=== PATIENT | male | born 1975 ===

== ENCOUNTER 2016-11-14 22:24 | Emergency (ER) | payer MEDICAID ==
[2016-11-14 22:36] VITALS: BMI 35.7
[2016-11-14 22:45] VITALS: BP 126/74; PULSE 101; RESP 16; TEMP 98.5; O2SAT 96
[2016-11-14] MEDS ORDERED: Sodium Chloride 0.9% 1,000 ML IV STA (23:08)
--- NOTE | 2016-11-14 23:08 | ED PDOC ---
Arrival/HPI - General Chief Complaint: Lower Extremity Problem/Injury Time Seen by Provider: 11/14/16 22:43 Historian: Patient - History of Present Illness Narrative History of Present Illness (Text): 11/14/16 23:00 This 41 yo male presents to this ED c/o scattered muscle spasm, and arthralgia x 1 day. Patient stated his muscle spasm had caused to fall, hitting his head. He felt dizzy at first. But he denies LOC, diplopia, dysarthria, sob, cp, abdominal pain, back pain, neck pain, PA, or abnormal gait. Time/Duration: Other (See HPI) Context: Home Past Medical History - Provider Review Nursing Documentation Reviewed: Yes - Cardiac Hx Cardiac Disorders: No - Pulmonary Hx Respiratory Disorders: No - Neurological Hx Neurological Disorder: No - HEENT Hx HEENT Disorder: No - Renal Hx Renal Disorder: No - Endocrine/Metabolic Hx Diabetes Mellitus Type 1: Yes - Hematological/Oncological Hx Blood Disorders: No - Integumentary Hx Dermatological Disorder: No - Gastrointestinal Hx Gastrointestinal Disorders: No - Genitourinary/Gynecological Hx Genitourinary Disorders: No - Psychiatric Hx Depression: Yes Hx Substance Use: No - Anesthesia Hx Anesthesia: No Family/Social History - Physician Review Nursing Documentation Reviewed: Yes Family/Social History: No Known Family HX Smoking Status: Never Smoked Hx Alcohol Use: Yes Frequency of alcohol use: Socially Hx Substance Use: No Allergies/Home Meds Allergies/Adverse Reactions: Allergies Penicillins Allergy (Verified 11/14/16 22:36) RASH Home Medications: Home Meds Medication Instructions Recorded Confirmed Insulin Detemir [Levemir] 40 unit SC BID 09/30/15 11/14/16 Review of Systems - Review of Systems Constitutional: Normal. absent: Fatigue, Weight Change, Fevers Eyes: Normal. absent: Vision Changes, Photophobia ENT: Normal Respiratory: Normal. absent: SOB, Cough Cardiovascular: Normal. absent: Chest Pain, Palpitations, Orthopnea Gastrointestinal: Normal. absent: Abdominal Pain, Diarrhea, Nausea Genitourinary Male: Normal. absent: Dysuria, Frequency, Hematuria Musculoskeletal: Arthralgias, Myalgias, Other (Muscle spasm). absent: Back Pain , Neck Pain, Joint Swelling Skin: Normal. absent: Rash Neurological: Normal. absent: Headache, Dizziness, Focal Weakness, Gait Changes , Speech Changes, Facial Droop, Disequilibrium Endocrine: Normal Hemo/Lymphatic: Normal Psychiatric: Normal Physical Exam Vital Signs Temp Pulse Resp BP Pulse Ox 11/14/16 22:43 98.5 F 101 H 16 126/74 96 Temperature: Afebrile Blood Pressure: Normal Pulse: Regular Respiratory Rate: Normal Appearance: Positive for: Well-Appearing, Non-Toxic, Comfortable Pain Distress: None Mental Status: Positive for: Alert and Oriented X 3 - Systems Exam Head: Present: Normocephalic, Ecchymosis (1 cm ecchymosis top of scalp. No bony tenderness, no abrasion), Other (No raccoon sign. No alfaro sign) Pupils: Present: PERRL, Other (nohyphema) Extroacular Muscles: Present: EOMI. No: Entrapment Conjunctiva: Present: Normal Ears: Present: Normal, NORMAL TM, Normal Canal, Other (No hemotympanum). No: Erythema, TM Bulging, Fluid, TM Perf Mouth: Present: Moist Mucous Membranes Pharnyx: Present: Normal. No: ERYTHEMA, EXUDATE, TONSILS ENLARGED Nose (External): Present: Atraumatic Nose (Internal): Present: Normal Inspection Neck: Present: Normal Range of Motion. No: Meningeal Signs, MIDLINE TENDERNESS , Paraspinal Tenderness Respiratory/Chest: Present: Clear to Auscultation, Good Air Exchange. No: Respiratory Distress, Accessory Muscle Use, Wheezes, Decreased Breath Sounds, Rales, Retracting, Rhonchi Cardiovascular: Present: Regular Rate and Rhythm, Normal S1, S2. No: Murmurs Abdomen: Present: Normal Bowel Sounds. No: Tenderness, Distention, Peritoneal Signs, Rebound, Guarding Back: Present: Normal Inspection. No: CVA Tenderness, Midline Tenderness, Paraspinal Tenderness, Pain with Leg Raise Upper Extremity: Present: Normal Inspection, Normal ROM, NORMAL PULSES, Neurovascularly Intact, Capillary Refill < 2s. No: Cyanosis, Edema Lower Extremity: Present: Normal Inspection, NORMAL PULSES, Normal ROM, Neurovascularly Intact, Capillary Refill < 2 s. No: Edema, CALF TENDERNESS Neurological: Present: GCS=15, CN II-XII Intact, Speech Normal, Motor Func Grossly Intact, Normal Sensory Function, Normal Cerebellar Funct, Norm Deep Tendon Reflexes, Memory Normal, Other (No neuro focal deficits. Normal gait.) Skin: Present: Warm, Dry, Normal Color. No: Rashes Psychiatric: Present: Alert, Oriented x 3, Normal Insight, Normal Concentration Medical Decision Making ED Course and Treatment: 11/15/16 02:00 Re-evaluation. Patient feels better. Discussed results and plan with patient who expresses understanding. All questions answered and there is agreement with the plan to discharge home with instructions. Patient stable for discharge. Return if symptoms persist or worsen. Patient does not want to have urine test done. He feels better and he wishes to be discharge home. Patient has a normal gait. Re-evaluation Time: 02:00 Reassessment Condition: Re-examined, Improved - Lab Interpretations Lab Results: 11/14/16 23:24 11/14/16 23:24 Lab Results 11/14/16 23:24: WBC 10.7, RBC 4.61, Hgb 14.3, Hct 41.9 L, MCV 90.9, MCH 31.0, MCHC 34.1, RDW 12.7, Plt Count 276, MPV 10.5, Gran % 53.8, Lymph % (Auto) 37.9 H , Meade % (Auto) 6.3 H, Eos % (Auto) 1.3 L, Baso % (Auto) 0.7, Gran # 5.73, Lymph # 4.0 H, Meade # 0.7 H, Eos # 0.1, Baso # 0.07, Sodium 141, Potassium 3.9, Chloride 104, Carbon Dioxide 25, Anion Gap 16, BUN 15, Creatinine 1.2, Est GFR ( Amer) > 60, Est GFR (Non-Af Amer) > 60, Random Glucose 168 H, Calcium 9.5, Total Bilirubin 0.6, AST 42, ALT 27, Alkaline Phosphatase 84, Total Protein 7.5, Albumin 4.2, Globulin 3.3, Albumin/Globulin Ratio 1.3 I have reviewed the lab results: Yes Interpretation: No clinic. lab abnormalty - Medication Orders Current Medication Orders: Discontinued Medications Diazepam (Valium) 5 mg PO ONCE ONE PRN Reason: Protocol Stop: 11/14/16 23:09 Last Admin: 11/14/16 23:28 Dose: 5 MG Behavioural Document 11/14/16 23:28 SB (Rec: 11/14/16 23:[address] [facility] [id number] Maintenance Maintenance Dose No Nonmedicinal Nonmedicinal Interventions Redirect Therapeutic Communication Behavior Behavior for Medication: Anxiety Sodium Chloride (Sodium Chloride 0.9%) 1,000 mls @ 999 mls/hr IV .Q1H1M STA Stop: 11/15/16 00:08 Last Admin: 11/14/16 23:28 Dose: 999 MLS/HR eMAR Start Stop Document 11/14/16 23:28 SB (Rec: 11/14/16 23:[address] [facility] [id number] Intravenous Solution Start Date 11/14/16 Start Time 23:28 End Date 11/14/16 Disposition/Present on Arrival - Present on Arrival Any Indicators Present on Arrival: No History of DVT/PE: No History of Uncontrolled Diabetes: No Urinary Catheter: No History of Decub. Ulcer: No History Surgical Site Infection Following: None - Disposition Have Diagnosis and Disposition been Completed?: Yes Diagnosis: Muscle spasm, Fall, Musculoskeletal pain, Scalp bruising Disposition: HOME/ ROUTINE Disposition Time: 02:01 Patient Plan: Discharge Condition: GOOD Discharge Instructions (ExitCare): Muscle Spasm (ED), Musculoskeletal Pain (ED) Additional Instructions: Call private doctor rylan cat up visit in 1-2 days. Take medication as instructed. Return to emergency if symptoms . Prescriptions: Naproxen 500 mg PO BID #10 tab diaZEpam [Valium] 5 mg PO DAILY #3 tab Referrals: [facility] [Outside] - Follow up with primary Forms: WORK NOTE
[2016-11-14 23:34] LABS: ADD MANUAL DIFF? NO
[2016-11-14 23:36] LABS: BASO # 0.07 K/mm3 (0.0-2.0); BASO % 0.7 % (0.0-3.0); EOS # 0.1 (0.0-0.7); EOS % 1.3 % (1.5-5.0); GRAN # 5.73 (1.4-6.5); GRAN % 53.8 % (50.0-68.0); HEMATOCRIT 41.9 % (42.0-52.0); LYMPH % 37.9 % (22.0-35.0); MEAN CELL VOLUME 90.9 fL (80.0-105.0); MEAN CORPUSCULAR HGB CONC 34.1 g/dl (31.0-37.0); MEAN PLATELET VOLUME 10.5 fl (7.0-11.0); MONO # 0.7 (0.1-0.6); MONO % 6.3 % (1.0-6.0); PLATELET COUNT 276 10^3/uL (120.0-450.0); RED CELL DISTRIBUTION WIDTH 12.7 % (11.5-14.5); WHITE BLOOD COUNT 10.7 10^3/ul (4.5-11.0)
[2016-11-14 23:47] LABS: ALB/GLOB RATIO 1.3 (1.1-1.8); ALKALINE PHOSPHATASE 84 U/L (38-133); ALT/SGPT 27 U/L (7-56); AST/SGOT 42 U/L (15-59); BILIRUBIN,TOTAL 0.6 mg/dL (0.2-1.3); BLOOD UREA NITROGEN 15 mg/dL (7-21); CALCIUM 9.5 mg/dL (8.4-10.5); CARBON DIOXIDE 25 mmol/L (21-33); CHLORIDE 104 mmol/L (98-107); GFR AFRICAN-AMERICAN > 60; GLUCOSE,RANDOM 168 mg/dL (70-110); POTASSIUM 3.9 mmol/L (3.6-5.0); SODIUM 141 mmol/L (132-148); TOTAL PROTEIN 7.5 g/dL (5.8-8.3)
== END 2016-11-15 02:38 | disposition home or self-care (01) ==
LOC: ED 22:24
DX: M62.838 Other muscle spasm (principal); M79.1 Myalgia; S00.03XA Contusion of scalp, initial encounter; W18.30XA Fall on same level, unspecified, initial encounter; Y92.009 Unspecified place in unspecified non-institutional (private) residence as the place of occurrence of the external cause; E10.9 Type 1 diabetes mellitus without complications
CPT/HCPCS: 80053; 85025; 99283; J7040